=== PATIENT | female | born 1995 | race Caucasian/White ===

== ENCOUNTER 2018-06-14 09:33 | Emergency (ER) | payer OTHER ==
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
[2018-06-14] MEDS ORDERED: IBUPROFEN 600 MG TAB PO ONE (10:02)
[2018-06-14] MEDS ORDERED: CYCLOBENZAPRINE 10 MG TAB PO ONE (10:02)
[2018-06-14 10:45] VITALS: BP 135/79
== END 2018-06-14 10:43 | disposition home or self-care (01) ==
DX: S16.1XXA Strain of muscle, fascia and tendon at neck level, initial encounter (principal); V49.49XA Driver injured in collision with other motor vehicles in traffic accident, initial encounter; Y92.410 Unspecified street and highway as the place of occurrence of the external cause; Y99.9 Unspecified external cause status; Y93.9 Activity, unspecified